=== PATIENT | male | born 1990 | race Caucasian/White ===

== ENCOUNTER 2023-05-16 14:26 | Emergency (ER) | payer OTHER, SELFPAY ==
[2023-05-16 14:56] VITALS: BP 110/70; PULSE 114; RESP 18; TEMP 37.5; O2SAT 97; BMI 23.8
--- NOTE | 2023-05-16 16:47 | CRLHL7_ITS ---
For Patients: As a result of the 21st Century Cures Act, medical imaging exams and procedure reports are released immediately into your electronic medical record. You may view this report before your referring provider. If you have questions, please contact your health care provider. INDICATION: Abdominal pain and bloody stools. History of Crohn disease. TECHNIQUE : Abdomen/pelvis CT with IV contrast. 91 milliliters Isovue 370. Coronal and sagittal reformations. COMPARISON: None available. FINDINGS: Focal fatty change adjacent to the falciform ligament. Dystrophic calcification in segment 5 of the liver. No additional liver lesion. Patent hepatic vasculature. No biliary dilation. The portal, superior mesenteric, and splenic vein patent. Spleen, adrenal glands, and pancreas are normal. Symmetric renal enhancement. No hydronephrosis. 3 mm nonobstructing stone interpolar region of the left kidney. No bowel obstruction. No definite bowel wall thickening. No ileus. Motion artifact slightly limits evaluation of the bowel. Urinary bladder is distended but otherwise unremarkable. Prostate size is within normal limits. Normal caliber abdominal aorta with no atherosclerosis. Renal and mesenteric arteries are widely patent. No adenopathy. No pneumoperitoneum. No free fluid. Visualized lung bases demonstrate no nodules or opacities. There are no acute or aggressive osseous abnormalities. IMPRESSION: 1. Unremarkable abdominal CT. No cause of hematochezia identified. 2. 3 mm nonobstructing stone interpolar region left kidney. Please note that all CT scans at this facility use dose modulation, iterative reconstruction, and/or weight-based dosing when appropriate to reduce radiation dose to as low as reasonably achievable. Dictated by Jasvir Hewitt MD @ 05/16/2023 6:03:53 PM (Electronically Signed)
--- NOTE | 2023-05-16 16:48 | CRLHL7_ITS ---
For Patients: As a result of the Century Cures Act, medical imaging exams and procedure reports are released immediately into your electronic medical record. You may view this report before your referring provider. If you have questions, please contact your health care provider. INDICATION: SEIZURE. HEAD TRAUMA. TECHNIQUE: CT head without contrast. COMPARISON: None. FINDINGS: CSF spaces: Within normal limits for age. Brain parenchyma and extra-axial spaces: The shin-white differentiation is normal. No sign of mass, hemorrhage, or midline shift. No extra-axial fluid collection. Skull base and calvarium: The visualized paranasal sinuses and mastoid air cells demonstrate no acute or significant findings. The visualized orbits are grossly unremarkable. No skull fractures. IMPRESSION: Unremarkable noncontrast head CT. Please note that all CT scans at this facility use dose modulation, iterative reconstruction, and/or weight-based dosing when appropriate to reduce radiation dose to as low as reasonably achievable. Dictated by Ricardo Vázquez MD @ 05/16/2023 6:18:37 PM (Electronically Signed)
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
[2023-05-16 17:30] LABS: Basophils Absolute Auto 0.05 K/uL (0.00-0.30); Basophils Percent Auto 0.6 % (0.0-3.0); Eosinophils Absolute Auto 0.26 K/uL (0.00-0.50); Hematocrit 46.9 % (37.0-53.0); Hemoglobin* 15.7 gm/dL (13.5-17.5); Immature Granulocytes Abs Auto 0.01 K/uL (0.00-0.30); Immature Granulocytes Pct Auto 0.1 %; Lymphocytes Absolute Auto 2.19 K/uL (0.90-2.90); Lymphocytes Percent Auto 25.2 % (20-44); Mean Corpuscular HGB Conc 34 gm/dL (32-36); Mean Corpuscular Hemoglobin 29 pg (26-34); Mean Corpuscular Volume 88 fL (80-100); Monocytes Percent Auto 10.5 % (0.0-11.0); Neutrophils Absolute Auto 5.27 K/uL (1.7-7.0); Neutrophils Percent Auto 60.6 % (42.0-72.0); Platelet Count* 279 K/uL (140-440); RDW Coefficient of Variation % 12.5 % (11.5-15.5); Red Blood Count 5.36 m/uL (4.30-5.90); White Blood Count* 8.69 K/uL (4.50-11.00)
[2023-05-16 17:36] LABS: Slide Review Reflex No
[2023-05-16] MEDS: LORazepam 1 MG TABLET PO ×2 (17:43→22:33)
[2023-05-16 17:46] LABS: Albumin* 4.9 g/dL (3.3-5.0); Chloride* 105 mmol/L (96-114); Sodium* 139 mmol/L (135-149)
[2023-05-16 17:48] LABS: Anion Gap 11 mEq/L (7-15); Aspartate Amino Transferase* 215 U/L (12-35); Bilirubin Total* 0.5 mg/dL (0.1-1.5); Carbon Dioxide* 23 mmol/L (20-32); Creatinine* 0.7 mg/dL (0.5-1.5); Est. Creatinine Clearance* 174.51; Estimated Glomerular Filt Rate 125 ml/min; Total Protein* 7.9 g/dL (6.0-8.3)
[2023-05-16 17:49] LABS: Alanine Aminotransferase* 119 U/L (4-50); Alkaline Phosphatase* 73 U/L (40-150); Blood Urea Nitrogen* 15 mg/dL (5-24); Calcium* 9.5 mg/dL (8.4-10.6); Glucose* 81 mg/dL (60-115)
[2023-05-16 17:51] LABS: Ethanol* < 0.01 % (0.01-0.03)
[2023-05-16 17:53] LABS: Salicylate* < 1.0 mg/dL (1.0-10)
--- NOTE | 2023-05-16 18:10 | ED.NURSE ---
pt ordered and given a safety tray of food to eat.
[2023-05-16 18:12] LABS: PCR FLU A Negative PCR FLU A (Negative); PCR FLU B Negative PCR FLU B (Negative); PCR RSV Negative PCR RSV (Negative)
[2023-05-16 18:40] LABS: SARS PCR* Negative SARS-CoV-2 (Negative)
[2023-05-16 18:56] LABS: Acetaminophen* < 10.0 ug/mL (10.0-30.0)
[2023-05-16] MEDS: METHYLPREDNISOLONE SOD SUCC 62.5 MG/ML (125) 125 MG IVP (19:25)
[2023-05-16 21:22] LABS: Amphetamine Screen Urine POSITIVE (Negative); Barbiturate Screen Urine Negative (Negative); Benzodiazepines Screen Urine POSITIVE (Negative); Cannabinoid Screen Urine POSITIVE (Negative); Cocaine Screen Urine POSITIVE (Negative); Methadone Screen Urine Negative (Negative); Methamphetamines Screen Urine Negative (Negative); Opiate Screen Urine Negative (Negative); Oxycodone Screen Urine Negative (Negative); Phencyclidine Screen Urine Negative (Negative); Tricyclic Antidepressant Urine Negative (Negative)
[2023-05-16] MEDS: IBUPROFEN 600 MG TABLET PO (22:00)
[2023-05-16 22:49] LABS: Chlamydia DNA Amplified* NOT DETECTED (No Detected); GC DNA Amplified* NOT DETECTED (No Detected)
[2023-05-16] MEDS: OLANZapine 5 MG TAB.RAPDIS 10 MG PO (23:31)
[2023-05-16 23:40] VITALS: BP 114/68; PULSE 78; RESP 16; TEMP 36.3; O2SAT 97
--- NOTE | 2023-05-17 01:32 | PC.NURSE ---
patient given sandwich.
[2023-05-17 03:46] VITALS: RESP 18
--- NOTE | 2023-05-17 03:46 | PC.NURSE ---
patient visualized on camera, 1:1 staff monitor. appears to be sleeping in bed, RR even and unlabored.
[2023-05-17 09:04] VITALS: BP 131/62; PULSE 52; RESP 18; TEMP 37.2; O2SAT 98
--- NOTE | 2023-05-17 09:10 | ED.NURSE ---
Breakfast tray ordered for pt
--- NOTE | 2023-05-17 14:07 | ED.NURSE ---
DEC in currently assessing pt
--- NOTE | 2023-05-17 14:37 | ED.NURSE ---
Pt Father brought in food for pt, pt eating lunch at this time
--- NOTE | 2023-05-17 16:13 | ED.NURSE ---
Pt asleep and withdrawn, refused offer to brush teeth
[2023-05-17] MEDS: LORazepam 1 MG TABLET PO (17:20)
--- NOTE | 2023-05-17 17:26 | ED.NURSE ---
Dinner tray ordered for pt, shower offered for after dinner.
[2023-05-17 19:35] VITALS: BP 122/96; PULSE 97; RESP 22; TEMP 37.1; O2SAT 96
[2023-05-17] MEDS: LORazepam 0.5 MG TABLET PO (19:41)
--- NOTE | 2023-05-17 19:57 | ED.NURSE ---
Pt given new set of scrubs, socks, underwear, toothpaste, toothbrush, and deodorant. Pt to med surg to shower, accompanied by computer security specialist.
--- NOTE | 2023-05-17 20:01 | ED.NURSE ---
Pt to [facility] with security solutions architect to take a shower.
--- NOTE | 2023-05-17 20:38 | ED.NURSE ---
pt report given to oncbronwyn RN
[2023-05-17] MEDS: OLANZapine 5 MG TAB.RAPDIS PO (20:46)
--- NOTE | 2023-05-17 20:47 | ED.NURSE ---
Pt back from shower and sheets changed in room. Pt very pleasant and courteous. Water to pt. Pt requests night medication (zyprexa). Brought to pt.
[2023-05-17 21:03] LABS: Thyroid Stimulating Hormone* 0.435 uIU/mL (0.270-4.20)
[2023-05-17] MEDS: lidocaine HCL 4 % TOP SOLN 50 ML BOTTLE 15 ML PO (21:16)
[2023-05-17] MEDS: MAG HYDROX/ALUMINUM HYD/SIMETH 30 ML ORAL.SUSP 15 ML PO (21:16)
[2023-05-17] MEDS: OMEPRAZOLE 20 MG CAPSULE DR PO (21:16)
--- NOTE | 2023-05-17 22:08 | ED.NURSE ---
Pt's DEC reassessment received via fax. Reassessment states pt is positive for methamphetamines in toxicology screen. This is incorrect information, as pt's toxicology screen is positive for amphetamines (which he is prescribed) and NOT methamphetamines. DEC called and given this information. DEC states they are unable to correct reassessment.
[2023-05-17 23:39] VITALS: BP 115/80; PULSE 72; RESP 20; TEMP 36.2; O2SAT 97
[2023-05-17 23:40] VITALS: BP 115/80; PULSE 72; RESP 20; TEMP 36.2; O2SAT 97
--- NOTE | 2023-05-18 00:01 | ED.NURSE ---
Current placement updates: -[facility] ([facility]): Full, Call back 05/18 at 1100, ([address] is the only possibility in [facility] system because it is a [facility]) -[facility]: Full, Call back 05/18 after 0900 -[facility]: Reviewing (info faxed [phone]) -[facility] gam[facility]: Reviewing -[facility] Mccormack: Reviewing (info faxed [phone]) -[facility]': Declined -[facility] Sidhu: Declined, too acute -[facility]: Declined, too acute -[facility] (Eric Patel): Declined d/t medical issues -[facility] ([facility]): Declined d/t medical issues
--- NOTE | 2023-05-18 08:54 | ED.NURSE ---
DEC in progress
== END 2023-05-18 10:42 | disposition home or self-care (01) ==
PROVIDERS: Emergency Medicine; Family Medicine; Emergency Provider Emergency Medicine Emergency Medical Services
DX: R45.851 Suicidal ideations (principal); F41.9 Anxiety disorder, unspecified; R79.89 Other specified abnormal findings of blood chemistry; K50.90 Crohn's disease, unspecified, without complications
CPT/HCPCS: 36415; 70450; 74177; 80053; 80143; 80179; 80306; 82077; 84443; 85025; 87491; 87591; 87631; 95992; 96374; 99284; 99285; A9270; J2930; Q9967